=== PATIENT | male | born 1945 | race Caucasian/White ===

== ENCOUNTER → 2023-07-26 | Outpatient (CLI) | payer MEDICARE ==
[~2023-07-26] MED LIST: AMLO10 PO; AMOX500 PO; ATEN50; ATEN50 PO; CITA20 PO; ESCI10; HYDACE5; HYDACE5 PO; HYDCHL25 PO; SPIHYD
[2023-07-26 10:40] LABS: BASOPHILS ABSOLUTE AUTO 0.07 K/mm3 (0.00-0.23); BASOPHILS PERCENT AUTO 1 % (0-2); EOSINOPHILS ABSOLUTE AUTO 0.27 K/mm3 (0.00-0.68); EOSINOPHILS PERCENT AUTO 4 % (0-6); Hematocrit 45.6 % (37.0-53.0); IMMATURE GRAN ABSOLUTE AUTO 0.02 K/mm3 (0.00-0.10); IMMATURE GRAN PERCENT AUTO 0 % (0-1); LYMPHOCYTES PERCENT AUTO 24 % (21-46); MONOCYTES ABSOLUTE AUTO 0.57 K/mm3 (0.16-1.47); MONOCYTES PERCENT AUTO 8 % (4-13); Mean Corpuscular HGB 28.9 pg (26.0-34.0); Mean Corpuscular HGB Conc 35.1 g/dL (31.5-36.5); Mean Corpuscular Volume 83 fL (80-100); NEUTROPHILS ABSOLUTE AUTO 4.29 K/mm3 (1.96-9.15); NEUTROPHILS PERCENT AUTO 63 % (41-73); Platelet Count 308 K/mm3 (150-400); RDW Coefficient Variation 12.9 % (11.7-14.2); Red Blood Cell Count 5.53 M/mm3 (4.30-5.90); White Blood Cell Count 6.82 K/mm3 (4.00-11.30)
[2023-07-26 10:55] LABS: Alanine Aminotransfer (ALT/SGP 29 U/L (12-78); Albumin, Blood 3.8 g/dL (3.4-5.0); Albumin/Globulin Ratio 1.2 (0.8-1.8); Alk Phos 66 U/L (50-136); Anion Gap 8 mmol/L (3-11); Aspartate Aminotrans (AST/SGOT 17 U/L (12-37); Bilirubin, Total 0.5 mg/dL (0.1-1.0); Blood Urea Nitrogen 20 mg/dL (8-24); Bun/Creatinine Ratio 14.5 (12.0-20.0); CHOL/HDL RATIO 4.7; CO2, Blood 28 mmol/L (21-32); Calcium, Blood 9.8 mg/dL (8.5-10.1); Chloride, Blood 105 mmol/L (98-108); Cholesterol 188 mg/dL (50-200); Creatinine, Blood 1.38 mg/dL (0.60-1.20); Globulin, Blood 3.3 g/dL (2.2-4.0); Glomerular Filtration Rate 52 (60-); Glucose, Blood 106 mg/dL (70-99); HDL Cholesterol 40 mg/dL (>39); LDL/HDL RATIO 2.8; Low Density Lipoprotein Chol 112 mg/dL (0-110); Potassium, Blood 3.4 mmol/L (3.5-5.5); Sodium, Blood 138 mmol/L (136-145); Total Protein, Blood 7.1 g/dL (6.4-8.2); Triglycerides 178 mg/dL (30-160); Very Low Density Lipoprot Chol 35 mg/dL (6-32)
== END | disposition home or self-care (01) ==
LOC: LAB 08:47 → LAB SHORT 08:47
PROVIDERS: Family Medicine
DX: I12.9 Hypertensive chronic kidney disease with stage 1 through stage 4 chronic kidney disease, or unspecified chronic kidney disease (principal); N18.31 Chronic kidney disease, stage 3a
CPT/HCPCS: 36415; 80053; 80061; 85025

== ENCOUNTER 2024-03-29 07:02 | Day surgery (SDC) | payer MEDICARE ==
[~2024-03-29] VITALS: Ht 170.2 cm; Wt 81.3 kg
[~2024-03-29 07:02] MED LIST changes: +Balanced Salt Epinephrine Irrigation Solution 500 mL IR SCH; +Lidocaine HCl/Pf 1% 5 ML VIAL XX SCH; +Moxifloxacin HCL 0.5 MG/0.1 ML 0.4MLSYR RIGHTEYE SCH; +PHENYLEPHRINE\\TROPICAMIDE\\TETRACAINE OPHTHALMIC DILATING SOLN RIGHTEYE PRN; +Povidone-Iodine 450 DROP/30 ML Solution ONE; +Povidone-Iodine 450 DROP/30 ML Solution RIGHTEYE SCH; +SILD50TA PO; +Tetracaine HCl/Pf 0.5% Opth Soln 4 ml ONE; +Triamcinolone Inj Susp 40 MG / ML 1ML Vial INJ SCH; +Triamcinolone Inj Susp 40 MG / ML 1ML Vial ONE; +ZOLP10 PO
[2024-03-29] MEDS ORDERED: Diazepam 2 MG Tab ONE (07:50)
--- NOTE | 2024-03-29 08:14 | NUR ---
[facility]14 [facility] PER PATIENT HE HAS NOT TAKEN ANY MEDICATIONS THIS MORNING. 4 MG PO VALIUM GIVEN PER ORDERS FROM DR BRYANT AT 0812 WITH SMALL SIP OF WATER.
[2024-03-29 09:09] VITALS: BP 123/88
== END 2024-03-29 09:26 | disposition home or self-care (01) ==
LOC: ORSCSDS 07:02
PROVIDERS: Ophthalmology
PROC: 08RJ3JZ Replacement of Right Lens with Synthetic Substitute, Percutaneous Approach (ICD-10-PCS; principal; 2024-03-29 09:00)
DX: H25.811 Combined forms of age-related cataract, right eye (principal); I10 Essential (primary) hypertension; Z79.899 Other long term (current) drug therapy; Z87.891 Personal history of nicotine dependence
CPT/HCPCS: A9270; J3301; V2632

== ENCOUNTER 2024-04-04 08:31 | Day surgery (SDC) | payer MEDICARE ==
[~2024-04-04] VITALS: Ht 175.3 cm; Wt 81.4 kg
[~2024-04-04 08:31] MED LIST changes: +Moxifloxacin HCL 0.5 MG/0.1 ML 0.4MLSYR LEFTEYE SCH; -Moxifloxacin HCL 0.5 MG/0.1 ML 0.4MLSYR RIGHTEYE SCH; +PHENYLEPHRINE\\TROPICAMIDE\\TETRACAINE OPHTHALMIC DILATING SOLN LEFTEYE PRN; -PHENYLEPHRINE\\TROPICAMIDE\\TETRACAINE OPHTHALMIC DILATING SOLN RIGHTEYE PRN; +Povidone-Iodine 450 DROP/30 ML Solution LEFTEYE SCH; -Povidone-Iodine 450 DROP/30 ML Solution RIGHTEYE SCH
[2024-04-04] MEDS ORDERED: Diazepam 2 MG Tab ONE (08:53)
--- NOTE | 2024-04-04 09:05 | NUR ---
04/04/24 0905 Rubi Nava 0903: PT REPORTED ANXIETY LEVEL OF 0904: 4 MG VALIUM PO GIVEN PER ORDERS FROM DR PERRIN
--- NOTE | 2024-04-04 10:28 | NUR ---
04/04/24 1028 Fredy Chaney PT NOTED TO BE IN A-FIB IN PRE-OP BASED ON 3-LEAD ECG . 12 LEAD ECG OBTAINED, PER DR. BARRAZA ORDER. DR. BARRAZA REVIEWED ECG AND APPROVED D/C. PT DENIED CP, DIZZINESS, WEAKNESS, SOB, NAUSEA, AND OTHER CARDIAC SYMPTOMS. NONE WERE OBSERVED. PT INSTRUCTED TO FOLLOW UP WITH PCP IMMEDIATELY FOR A-FIB AND SEEK EMERGENCY CARE FOR CARDIAC SYMPTOMS.
[2024-04-04 10:29] VITALS: BP 125/81
== END 2024-04-04 10:25 | disposition home or self-care (01) ==
LOC: ORSCSDS 08:31
PROVIDERS: Ophthalmology
PROC: 08RK3JZ Replacement of Left Lens with Synthetic Substitute, Percutaneous Approach (ICD-10-PCS; principal; 2024-04-04 10:00)
DX: H25.812 Combined forms of age-related cataract, left eye (principal); Z96.1 Presence of intraocular lens; H35.30 Unspecified macular degeneration; Z85.46 Personal history of malignant neoplasm of prostate; I10 Essential (primary) hypertension; I48.91 Unspecified atrial fibrillation; Z79.899 Other long term (current) drug therapy; Z87.891 Personal history of nicotine dependence
CPT/HCPCS: 93005; 93010; A9270; J3301; V2632

== ENCOUNTER 2024-05-22 20:23 | Inpatient (IN) | payer MEDICARE ==
[~2024-05-22] VITALS: Ht 175.3 cm; Wt 77.8 kg
[~2024-05-22 20:23] MED LIST changes: -Balanced Salt Epinephrine Irrigation Solution 500 mL IR SCH; -Lidocaine HCl/Pf 1% 5 ML VIAL XX SCH; -Moxifloxacin HCL 0.5 MG/0.1 ML 0.4MLSYR LEFTEYE SCH; -PHENYLEPHRINE\\TROPICAMIDE\\TETRACAINE OPHTHALMIC DILATING SOLN LEFTEYE PRN; -Povidone-Iodine 450 DROP/30 ML Solution LEFTEYE SCH; -Povidone-Iodine 450 DROP/30 ML Solution ONE; -Tetracaine HCl/Pf 0.5% Opth Soln 4 ml ONE; -Triamcinolone Inj Susp 40 MG / ML 1ML Vial INJ SCH; -Triamcinolone Inj Susp 40 MG / ML 1ML Vial ONE
[2024-05-22 20:52] LABS: BASOPHILS ABSOLUTE AUTO 0.08 K/mm3 (0.00-0.23); BASOPHILS PERCENT AUTO 0 % (0-2); EOSINOPHILS ABSOLUTE AUTO 0.01 K/mm3 (0.00-0.68); EOSINOPHILS PERCENT AUTO 0 % (0-6); Hematocrit 34.6 % (37.0-53.0); Hemoglobin 11.5 g/dL (13.5-17.5); IMMATURE GRAN PERCENT AUTO 2 % (0-1); LYMPHOCYTES ABSOLUTE AUTO 1.84 K/mm3 (0.84-5.20); LYMPHOCYTES PERCENT AUTO 8 % (21-46); MONOCYTES PERCENT AUTO 7 % (4-13); Mean Corpuscular HGB 28.6 pg (26.0-34.0); Mean Corpuscular HGB Conc 33.2 g/dL (31.5-36.5); Mean Corpuscular Volume 86 fL (80-100); Mean Platelet Volume 9.4 fL (9.1-12.4); NEUTROPHILS ABSOLUTE AUTO 18.27 K/mm3 (1.96-9.15); NEUTROPHILS PERCENT AUTO 82 % (41-73); Platelet Count 414 K/mm3 (150-400); RDW Coefficient Variation 14.7 % (11.7-14.2); RDW Standard Deviation 46.4 fL (35.1-46.3); Red Blood Cell Count 4.02 M/mm3 (4.30-5.90)
[2024-05-22 21:11] LABS: Albumin, Blood 3.4 g/dL (3.4-5.0); Albumin/Globulin Ratio 0.9 (0.8-1.8); Bilirubin, Total 1.2 mg/dL (0.1-1.0); Bun/Creatinine Ratio 18.8 (12.0-20.0); Calcium, Blood 9.9 mg/dL (8.5-10.1); Creatinine, Blood 2.24 mg/dL (0.60-1.20); Globulin, Blood 3.7 g/dL (2.2-4.0); Potassium, Blood 3.6 mmol/L (3.5-5.5); Total Protein, Blood 7.1 g/dL (6.4-8.2)
[2024-05-22 21:19] LABS: Prothrombin Time Results 67.8 Sec (9.7-11.5)
[2024-05-22] MEDS ORDERED: Cefepime HCl 1,000 MG in NS 100 ML IV ONE (21:25)
[2024-05-22 21:33] LABS: PCO2 Arterial 35.8 mmHg (35-45); PO2 Arterial 28.1 mmHg (80-100); pH Blood Arterial 7.39 (7.35-7.45)
[2024-05-22 21:35] LABS: International Normalized Ratio 7.35
[2024-05-22] MEDS ORDERED: Vancomycin HCL 1,500 MG in NS 250 ML IV ONE (21:35)
[2024-05-22 22:23] LABS: CORONAVIRUS COVID-19 AG Negative (NEGATIVE); INFLUENZA A AG Negative (NEGATIVE); INFLUENZA B AG Negative (NEGATIVE)
[2024-05-22] MEDS ORDERED: Ondansetron HCl 2 MG / ML 2ML Vial IV PRN (23:20)
[2024-05-23] VITALS (7 sets, daily range): BP systolic 103–116; BP diastolic 65–90
[2024-05-23] MEDS ORDERED: Phytonadione 5 MG Tab PO ONE (00:10)
[2024-05-23] MEDS ORDERED: Potassium Chloride 40 MEQ in NS 250 ML IV ONE (00:50)
[2024-05-23] MEDS ORDERED: NS 250 ML IV PRN (01:10)
[2024-05-23] MEDS ORDERED: Cefepime HCl 1,000 MG in NS 100 ML IV SCH (01:18)
[2024-05-23] MEDS ORDERED: WARF5 PO (01:39)
--- NOTE | 2024-05-23 02:17 | NUR ---
ASSUMPTION OF CARE PT TO UNIT FROM ED @0058. ON HIFLO CANNULA/OXY MASK 15L FOR TRANSPORT, PT PLACED ON BIPAP UPON ARRIVAL TO ROOM DUE TO DESATS <90%. PLACED ON BIPAP 12/30 100% , SPO2 NOW 97%. TOLERATING BIPAP WELL. NO NEW BLEEDING NOTED. VSS. ADMISSION COMPLETED ALONG WITH PT & DAUGHTER. FFP'S COMPLETED IN ER. PT STATES FEELING "MUCH BETTER" CURRENTLY. PT ORIENTED TO ROOM/HOSPITAL POLICY PROCEDURE. BED ALARM ON. BED IN LOW POSITION.
[2024-05-23] MEDS ORDERED: Furosemide 10 MG/ML 4ML Vial IV SCH (03:20)
[2024-05-23 03:44] LABS: Hematocrit 29.7 % (37.0-53.0); Hemoglobin 10.5 g/dL (13.5-17.5); Mean Corpuscular HGB 28.8 pg (26.0-34.0); Mean Corpuscular HGB Conc 35.4 g/dL (31.5-36.5); Mean Corpuscular Volume 82 fL (80-100); Mean Platelet Volume 9.2 fL (9.1-12.4); Platelet Count 334 K/mm3 (150-400); RDW Coefficient Variation 14.5 % (11.7-14.2); RDW Standard Deviation 42.7 fL (35.1-46.3); RETICULOCYTE ABSOLUTE 0.0863 M/mm3 (0.0200-0.1100); RETICULOCYTE COUNT PERCENT 2.37 % (0.50-2.50); Red Blood Cell Count 3.64 M/mm3 (4.30-5.90); White Blood Cell Count 18.26 K/mm3 (4.00-11.30)
[2024-05-23 03:50] LABS: International Normalized Ratio 3.56
[2024-05-23 03:52] LABS: Base Excess Venous 5.4 mmol/L; Bicarbonate Venous 28.7 mmol/L (24.0-30.0); PCO2 Venous 46.1 mmHg (38-42); pH Blood Venous 7.42 (7.34-7.37)
[2024-05-23 04:15] LABS: BAND PERCENT MAN 2 % (0-8); BASOPHILS PERCENT MAN 0 % (0-2); EOSINOPHILS PERCENT MAN 0 % (0-6); LYMPHOCYTES ABSOLUTE MAN 1.82 K/mm3 (0.84-5.20); LYMPHOCYTES PERCENT MAN 10 % (21-46); METAMYELOCYTE ABSOLUTE MAN 0.18 K/mm3 (0.00-0.00); METAMYELOCYTE PERCENT MAN 1 % (0-0); MONOCYTES ABSOLUTE MAN 1.09 K/mm3 (0.16-1.47); MONOCYTES PERCENT MAN 6 % (4-13); MYELOCYTE ABSOLUTE MAN 0.18 K/mm3 (0.00-0.00); MYELOCYTE PERCENT MAN 1 % (0-0); NEUTROPHILS ABSOLUTE MAN 14.97 K/mm3 (1.96-9.15); SEG NEUTROPHILS PERCENT MAN 80 % (41-73); TOTAL CELLS COUNTED 100
[2024-05-23 04:44] LABS: Prothrombin Time Results 34.7 Sec (9.7-11.5)
--- NOTE | 2024-05-23 05:24 | NUR ---
SHIFT SUMMARY SEE ADMISSION NOTE. POST ADMISSION, NO ACUTE CHANGES NOTED. PT HAS NOT COUGHED UP ANY BLOOD PER PT REPORT AND THIS RN'S ASSESMENT. PT REMAINS ON BIPAP 10/5 100%, TOLERATES QUICK BREAKS FOR ORAL SWABS. VSS. IV LASIX ORDERED/ADMINISTERED, BP CURRENTLY TOLERATING. OTHERWISE, PT RESTING. BED ALARM ON. BED IN LOW POSITION.
[2024-05-23 07:01] LABS: International Normalized Ratio 3.34; Prothrombin Time Results 32.7 Sec (9.7-11.5)
[2024-05-23 07:11] LABS: Albumin, Blood 3.6 g/dL (3.4-5.0); Bilirubin, Total 1.3 mg/dL (0.1-1.0); Bun/Creatinine Ratio 25.3 (12.0-20.0); C-REACTIVE PROTEIN, EXT RANGE 9.22 mg/dL (0.000-0.300); Calcium, Blood 9.4 mg/dL (8.5-10.1); Creatinine, Blood 1.62 mg/dL (0.60-1.20); Globulin, Blood 3.5 g/dL (2.2-4.0); Magnesium, Blood 2.5 mg/dL (1.6-2.4); Percent Saturation 13.5 % (20.0-50.0); Potassium, Blood 3.3 mmol/L (3.5-5.5); Total Protein, Blood 7.1 g/dL (6.4-8.2)
--- NOTE | 2024-05-23 09:33 | NUR ---
Pt trialed on n.c. this morning at 0930; His spo2 dropped to 86% on 10 l/min hi flow nasal cannula, without respiratory distress. RR around 20/min. Pt was put back on the bipap, but FiO2 was decreased to 70%, and he is maintaining spo2 95-96%. Daughter Talita is at the bedside. Pt states he is hungry, but understands that he still needs to keep the bipap mask on.
[2024-05-23 11:26] LABS: International Normalized Ratio 2.98
[2024-05-23 12:53] LABS: Prothrombin Time Results 29.4 Sec (9.7-11.5)
--- NOTE | 2024-05-23 13:14 | NUR ---
Dr. Fine here to see the patient. Suggested trying airvo so that the pt can eat and drink. Kimberly in respiratory called and requested Airvo set up. Pt currently on bipap at 70% FiO2.
[2024-05-23 15:41] LABS: Vancomycin, Random 6.9 ug/mL
[2024-05-23] MEDS ORDERED: Vancomycin HCL 1,250 MG in NS 250 ML IV SCH (16:00)
--- NOTE | 2024-05-23 16:48 | NUR ---
Pt has had improved respiratory status over the past 10 hours. This morning he did not tolerate being off of the bipap; this afternoon he is on Airvo and tolerating well with conversation, eating, and using urinal while in bed. Diuresing well. Lung sounds are clear in anterior upper lobes; fine inspiratory crackles noted in posterior lower lobes. Has a very occasional productive cough, with small amount of thin bright red mucous noted once. He remains on bed rest, liquid diet for lunch. Will advance as tolerated. He was instructed that he should still use the bipap any time that he is napping or sleeping for the night.
[2024-05-23] MEDS ORDERED: Citalopram Hydrobromide 20 MG Tab PO SCH (18:00)
--- NOTE | 2024-05-23 19:43 | NUR ---
ASSUMPTION OF CARE ASSUMED PT'S CARE AT 1900,BEDSIDE REPORT COMPLETED.PT AWAKE WATCHING TV.DENIES PAIN,DENIES SOB,DENIES NEEDS.ON AIRVO 76% AND 50L,OXYGEN SATURATION 94%.PLAN OF CARE REVIEWED.CALL LIGHT AND PT'S ITEMS WITHIN REACH,WILL CONTINUE TO MONITOR.
[2024-05-23] MEDS ORDERED: Lactobacil 2-S.Thermo-Bifido 1 1 Cap PO SCH (21:00)
[2024-05-24] VITALS (8 sets, daily range): BP systolic 97–122; BP diastolic 63–84
[2024-05-24 04:14] LABS: BASOPHILS ABSOLUTE AUTO 0.04 K/mm3 (0.00-0.23); BASOPHILS PERCENT AUTO 0 % (0-2); EOSINOPHILS ABSOLUTE AUTO 0.09 K/mm3 (0.00-0.68); EOSINOPHILS PERCENT AUTO 1 % (0-6); Hemoglobin 10.4 g/dL (13.5-17.5); IMMATURE GRAN ABSOLUTE AUTO 0.13 K/mm3 (0.00-0.10); IMMATURE GRAN PERCENT AUTO 1 % (0-1); LYMPHOCYTES ABSOLUTE AUTO 1.12 K/mm3 (0.84-5.20); LYMPHOCYTES PERCENT AUTO 7 % (21-46); MONOCYTES ABSOLUTE AUTO 0.81 K/mm3 (0.16-1.47); MONOCYTES PERCENT AUTO 5 % (4-13); Mean Corpuscular HGB 28.6 pg (26.0-34.0); Mean Corpuscular HGB Conc 34.7 g/dL (31.5-36.5); Mean Corpuscular Volume 82 fL (80-100); Mean Platelet Volume 9.3 fL (9.1-12.4); NEUTROPHILS ABSOLUTE AUTO 13.17 K/mm3 (1.96-9.15); NEUTROPHILS PERCENT AUTO 86 % (41-73); NRBC ABSOLUTE 0.02 K/mm3 (0.00-0.02); NRBC Auto 0.1 /100 WBC (0.0-0.2); Platelet Count 321 K/mm3 (150-400); RDW Coefficient Variation 14.6 % (11.7-14.2); Red Blood Cell Count 3.64 M/mm3 (4.30-5.90); White Blood Cell Count 15.36 K/mm3 (4.00-11.30)
[2024-05-24 04:28] LABS: International Normalized Ratio 1.66; Prothrombin Time Results 17.1 Sec (9.7-11.5)
[2024-05-24 04:38] LABS: Albumin/Globulin Ratio 0.9 (0.8-1.8); Bilirubin, Total 1.8 mg/dL (0.1-1.0); Bun/Creatinine Ratio 32.1 (12.0-20.0); Calcium, Blood 8.8 mg/dL (8.5-10.1); Creatinine, Blood 1.09 mg/dL (0.60-1.20); Globulin, Blood 3.5 g/dL (2.2-4.0); Potassium, Blood 2.7 mmol/L (3.5-5.5); Total Protein, Blood 6.5 g/dL (6.4-8.2)
--- NOTE | 2024-05-24 05:43 | NUR ---
SHIFT SUMMARY PT SLEPT ON/OFF THROUGHOUT THE NIGHT.TOLERATED BIPAP WELL.ASSESSMENT UNCHANGED THROUGHOUT THE SHIFT.PT DENIES PAIN,DENIES NEEDS AT THIS TIME.WILL GIVE REPORT TO DAYSHIFT NURSE FOR CONTINUITY OF CARE.CALL LIGHT AND PT'S ITEMS WITHIN REACH.
--- NOTE | 2024-05-24 07:53 | NUR ---
pt. potassium this am is 2.7, Dr. Scott notified and ordered for kcl 60meq po x1.
[2024-05-24] MEDS ORDERED: Potassium Chloride 20 MEQ TabCR PO ONE ×2 (08:00→18:00)
--- NOTE | 2024-05-24 08:16 | NUR ---
pt. up to chair for breakfast with 1 person assist. patient on airvo 53L/min and 77% fio2. patient desatted to 87 when sitting up and quickly recovered to 92-94% when transfering from bed to chair.
[2024-05-24] MEDS ORDERED: Atenolol 50 MG Tab PO SCH (09:00)
--- NOTE | 2024-05-24 09:04 | NUR ---
pt. tolerating fio2 at 61% and 50lpm via airvo satting 93-94%. patient is up in chair.
--- NOTE | 2024-05-24 10:45 | NUR ---
Dr. Scott at bedside. continue to monitor potassium levels and notify Doctor of low potassium levels. at this time patient to remain off of blood thinners. continue to work to improve breathing and wean off bipap.
--- NOTE | 2024-05-24 11:14 | NUR ---
Pt requested off of bipap. Attempted nasal cannula hi flow at 8-10 l/min but spo2 was only 86-88%. No dyspnea. AirVo placed (77% FiO2) and spo2 is 93% RR 14/min. Daughter at bedside.
--- NOTE | 2024-05-24 11:40 | NUR ---
daughter Talita at bedside; updated on echo and current plan for patient, questions in regards to dme and home health papers on patients bedside table addressed-educated on both as appropriate. patient reports that he does not want to continue to take the coumadin d/t current illiness; patients daughter and patient to discuss with doctor options for anticoagulants for treatment of afib and alternatives to coumadin during doctor/patient rounding.
[2024-05-25] VITALS (7 sets, daily range): BP systolic 95–128; BP diastolic 58–83
--- NOTE | 2024-05-25 01:53 | NUR ---
UPDATE PT HAD A 22 BEAT RUN OF VTACH. PT DENIED CP/PRESSURE, NUMBNESS, SOB, LIGHTHEAD/DIZZY. VSS. PTS POTASSIUM WAS 2.7 DURING DAYSHIFT, POTASSIUM WAS REPLENSHED. LEVEL RECHECKED AROUND 1300 AND WAS 2.9, PER REPORT PT RECEIVED ANOTHER DOSE OF POTASSIUM. LAB SCHEDULED FOR AM. PT MAGNESIUM WAS ALSO 2.5 LAST LABS. PROVIDER NOTIFIED OF THIS. 40 MEQ OF PO K ORDERED ORDERED AND GIVEN. PER PROVIDER WATCH RHYTHM AND IF VTACH SUSTAINS FOR GREATER THAN 30 BEATS CALL. WILL MONITOR PT.
[2024-05-25] MEDS ORDERED: Potassium Chloride 20 MEQ TabCR PO ONE ×2 (02:00→08:00)
[2024-05-25 04:18] LABS: BASOPHILS ABSOLUTE AUTO 0.05 K/mm3 (0.00-0.23); BASOPHILS PERCENT AUTO 0 % (0-2); EOSINOPHILS ABSOLUTE AUTO 0.31 K/mm3 (0.00-0.68); EOSINOPHILS PERCENT AUTO 3 % (0-6); Hematocrit 30.7 % (37.0-53.0); Hemoglobin 10.5 g/dL (13.5-17.5); IMMATURE GRAN ABSOLUTE AUTO 0.14 K/mm3 (0.00-0.10); IMMATURE GRAN PERCENT AUTO 1 % (0-1); LYMPHOCYTES ABSOLUTE AUTO 1.24 K/mm3 (0.84-5.20); LYMPHOCYTES PERCENT AUTO 10 % (21-46); MONOCYTES ABSOLUTE AUTO 0.66 K/mm3 (0.16-1.47); MONOCYTES PERCENT AUTO 5 % (4-13); Mean Corpuscular HGB 28.5 pg (26.0-34.0); Mean Corpuscular HGB Conc 34.2 g/dL (31.5-36.5); Mean Corpuscular Volume 83 fL (80-100); Mean Platelet Volume 9.5 fL (9.1-12.4); NEUTROPHILS ABSOLUTE AUTO 9.88 K/mm3 (1.96-9.15); NEUTROPHILS PERCENT AUTO 81 % (41-73); NRBC ABSOLUTE 0.02 K/mm3 (0.00-0.02); NRBC Auto 0.2 /100 WBC (0.0-0.2); Platelet Count 324 K/mm3 (150-400); RDW Coefficient Variation 14.6 % (11.7-14.2); RDW Standard Deviation 43.6 fL (35.1-46.3); Red Blood Cell Count 3.68 M/mm3 (4.30-5.90); White Blood Cell Count 12.28 K/mm3 (4.00-11.30)
[2024-05-25 04:30] LABS: International Normalized Ratio 1.26; Prothrombin Time Results 13.3 Sec (9.7-11.5)
[2024-05-25 04:43] LABS: Albumin, Blood 2.8 g/dL (3.4-5.0); Albumin/Globulin Ratio 0.8 (0.8-1.8); Bilirubin, Total 1.7 mg/dL (0.1-1.0); Bun/Creatinine Ratio 29.5 (12.0-20.0); Calcium, Blood 8.9 mg/dL (8.5-10.1); Creatinine, Blood 0.98 mg/dL (0.60-1.20); Globulin, Blood 3.5 g/dL (2.2-4.0); Potassium, Blood 3.3 mmol/L (3.5-5.5); Total Protein, Blood 6.3 g/dL (6.4-8.2)
--- NOTE | 2024-05-25 06:03 | NUR ---
SHIFT SUMMARY PT A&O X4, CALM, COOPERATIVE TO CARE. AFIB, HR IN THE 80'S, DENIES CP/PRESSURE, NUMB/TINGLING, SBP STABLE. PT HAD A 22 BEAT RUN OF VTACH, PTS VSS, ASYMPTOMATIC, PROVIDER NOTIFIED. O2 >92% ON BIPAP , PT DESATS WHILE TRANSITIONING FROM AIRVO TO BIPAP, RECOVERS QUICKLY. PT ON BIPAP DURING SLEEP AND AIRVO DURING THE DAY, RA AT BASELINE. PTS BREATING IS EVEN UNLABORED. DENIES SOB AT THIS TIME. PT USING URNIAL IN BED, YELLOW URINE. PTS POTASSIUM PT RESTING IN BED AT THIS TIME WILL MONITOR PT AND REPORT TO ONCOMING NURSE.
--- NOTE | 2024-05-25 07:19 | NUR ---
Bedside shift report from ROBIN Moura. The pt appears to be sleeping comfortably, wearing bipap. Heart rate noted afib, 94-101 bpm. Atenolol was reportedly held yesterday for systolic less than 105, which are the prescribed parameters. The pt had a heart rate of 70-80s two days ago. No overnight issues. PT was given an additional 40 Meq of potassium by the MONIQUE RN for hypokalemia on AM labs.
--- NOTE | 2024-05-25 13:12 | NUR ---
patient falling asleep and desatting on airvo; switched to bipap-desatted to 88 and recovered well on bipap.
[2024-05-25 15:23] LABS: Vancomycin, Trough 9.3 ug/mL (5.0-10.0)
[2024-05-25] MEDS ORDERED: Vancomycin HCL 1,000 MG in NS 250 ML IV SCH (16:00)
--- NOTE | 2024-05-25 17:32 | NUR ---
SHIFT SUMMARY. PATIENT IS A&OX4. PATIENT CALLS APPROPRIATELY AND IS ABLE TO MAKE HIS NEEDS KNOWN. PATIENT TOLERATING AIRVO WELL TODAY AT 45LPM AND FIO2 60%. PATIENT DENIES PAIN AND REPORTS FEELING BETTER TODAY. PATIENT HAS BEEN UP IN CHAIR MAJORITY OF THE DAY. PATIENT WOULD LIKE TO GET UP AND MOVE AROUND; DISCUSSED WITH PATIENT THE NEED TO BE OFF OF AIRVO/BIPAP TO WHICH HE UNDERSTANDS. PATIENT REPORTS THAT HIS EYES ARE DRY-EYE DROPS ORDERED FROM DR. BOGGS. CHAIR IS LOCKED AND PATIENT DENIES ANY NEEDS AT THIS TIME.
[2024-05-25] MEDS ORDERED: Tetrahydrozoline 0.05% Opth Soln 15 ML BOTHEYES PRN (17:50)
--- NOTE | 2024-05-25 21:04 | NUR ---
ASSUMPTION OF CARE RECEIVED REPORT FROM BRADLEY KELLY. PULMONOLGY AT BEDSIDE DURING SHIFT CHANGE. DISCUSSED PLAN FOR ATLEAST A FEW MORE DAYS HERE. PT A&O X4, CALM, COOPERATIVE TO CARE. HR IN THE 80'S-90'S, AFIB. DENIES CP/PRESSURE, NUMB/TINGLING, SBP STABLE. O2>92%, OCASSIONAL DESATS WHILE SWITCHING FROM AIRVO TO BIPAP BUT PT RECOEVERS QUICKLY. HE DENIES SOB AT THSI TIME. PT ON AIRVO AT START OF SHIFT. NIGHT TIME MEDS GIVEN AND PT PLACED BACK ON BIPAP FOR SLEEP. URINAL AT BEDSIDE. PT RESTING IN BED, DENIES ANY QUESTIONS. WILL MONITOR PT.
[2024-05-26] VITALS (7 sets, daily range): BP systolic 87–112; BP diastolic 58–82
[2024-05-26 04:52] LABS: BASOPHILS ABSOLUTE AUTO 0.06 K/mm3 (0.00-0.23); BASOPHILS PERCENT AUTO 1 % (0-2); EOSINOPHILS ABSOLUTE AUTO 0.59 K/mm3 (0.00-0.68); EOSINOPHILS PERCENT AUTO 5 % (0-6); Hematocrit 33.9 % (37.0-53.0); Hemoglobin 11.5 g/dL (13.5-17.5); IMMATURE GRAN ABSOLUTE AUTO 0.18 K/mm3 (0.00-0.10); IMMATURE GRAN PERCENT AUTO 2 % (0-1); LYMPHOCYTES ABSOLUTE AUTO 1.16 K/mm3 (0.84-5.20); LYMPHOCYTES PERCENT AUTO 10 % (21-46); MONOCYTES ABSOLUTE AUTO 0.59 K/mm3 (0.16-1.47); MONOCYTES PERCENT AUTO 5 % (4-13); Mean Corpuscular HGB 28.8 pg (26.0-34.0); Mean Corpuscular HGB Conc 33.9 g/dL (31.5-36.5); Mean Corpuscular Volume 85 fL (80-100); Mean Platelet Volume 9.4 fL (9.1-12.4); NEUTROPHILS ABSOLUTE AUTO 8.59 K/mm3 (1.96-9.15); NEUTROPHILS PERCENT AUTO 77 % (41-73); NRBC ABSOLUTE 0.03 K/mm3 (0.00-0.02); NRBC Auto 0.3 /100 WBC (0.0-0.2); Platelet Count 352 K/mm3 (150-400); RDW Standard Deviation 45.1 fL (35.1-46.3); Red Blood Cell Count 3.99 M/mm3 (4.30-5.90); White Blood Cell Count 11.17 K/mm3 (4.00-11.30)
[2024-05-26 05:12] LABS: Albumin, Blood 2.8 g/dL (3.4-5.0); Anion Gap 8 mmol/L (3-11); Blood Urea Nitrogen 32 mg/dL (8-24); Bun/Creatinine Ratio 29.9 (12.0-20.0); CO2, Blood 31 mmol/L (21-32); Chloride, Blood 100 mmol/L (98-108); Creatinine, Blood 1.07 mg/dL (0.60-1.20); Glomerular Filtration Rate 70 (60-); Glucose, Blood 95 mg/dL (70-99); Phosphorus, Blood 2.1 mg/dL (2.5-4.9); Potassium, Blood 3.4 mmol/L (3.5-5.5); Sodium, Blood 136 mmol/L (136-145)
--- NOTE | 2024-05-26 05:36 | NUR ---
SHIFT SUMMARY PT A&O X4, CALM, COOPERATIVE TO CARE. AFIB, 80'S-90'S, DENIES CP/PRESSURE, NUMB/TINGLING, SBP STABLE. PT O2 >92% ON BIPAP. PT ON AIRVO DURING THE DAY AND BIPAP WHILE SLEEPING. PT TOLERATING BIPAP AND HAS BEEN ON IT T/O SHIFT. PT USING URINAL AT BEDSIDE. PT RESTING IN BED AT THSI TME, HE DENIES QUESTIONS OR CONCERNS. NO ACUTE CHANGES T/O SHIFT. WILL MONITOR PT AND REPORT TO ONCOMING NURSE.
[2024-05-26] MEDS ORDERED: Potassium Chloride 20 MEQ TabCR PO ONE (09:35)
[2024-05-26] MEDS ORDERED: Potassium Phos/Sodium Phos 250 MG PACK PO ONE (09:35)
[2024-05-26] MEDS ORDERED: Azithromycin 500 MG in NS 250 ML IV SCH (10:38)
[2024-05-26] MEDS ORDERED: CefTRIAXone Sodium 1,000 MG in NS 100 ML IV SCH (10:38)
[2024-05-26] MEDS ORDERED: Acetaminophen 325 MG TABLET PO PRN (15:00)
--- NOTE | 2024-05-26 17:44 | NUR ---
PT PLEASNT TODAY. PAIN FOR LOW BACK. ORDERS FOR TYLENOL MADE AND GIVEN. CRACKLES LOW LEFT LUNG FOR ME. PT MOSTLY ON AIRVEO. 45 L WITH 60% FIO2. FAMILY IN TO VISIT TODAY. DESATS QUICKLY ON R.A WHEN SWITCH BIPAP TO AIRVO. NO FURTHER CONCERNS NOTED. BED IN LOW POSITION, CALL LITE IN REACH, CALLS APROP
[2024-05-27 00:09] VITALS: BP 99/59
[2024-05-27 04:00] LABS: BASOPHILS ABSOLUTE AUTO 0.09 K/mm3 (0.00-0.23); BASOPHILS PERCENT AUTO 1 % (0-2); EOSINOPHILS PERCENT AUTO 5 % (0-6); Hematocrit 34.8 % (37.0-53.0); Hemoglobin 11.4 g/dL (13.5-17.5); IMMATURE GRAN ABSOLUTE AUTO 0.28 K/mm3 (0.00-0.10); IMMATURE GRAN PERCENT AUTO 2 % (0-1); LYMPHOCYTES ABSOLUTE AUTO 1.09 K/mm3 (0.84-5.20); LYMPHOCYTES PERCENT AUTO 8 % (21-46); MONOCYTES ABSOLUTE AUTO 0.69 K/mm3 (0.16-1.47); MONOCYTES PERCENT AUTO 5 % (4-13); Mean Corpuscular HGB 27.9 pg (26.0-34.0); Mean Corpuscular HGB Conc 32.8 g/dL (31.5-36.5); Mean Corpuscular Volume 85 fL (80-100); Mean Platelet Volume 9.1 fL (9.1-12.4); NEUTROPHILS ABSOLUTE AUTO 10.91 K/mm3 (1.96-9.15); NEUTROPHILS PERCENT AUTO 79 % (41-73); NRBC ABSOLUTE 0.02 K/mm3 (0.00-0.02); NRBC Auto 0.1 /100 WBC (0.0-0.2); Platelet Count 357 K/mm3 (150-400); RDW Coefficient Variation 15.1 % (11.7-14.2); RDW Standard Deviation 44.9 fL (35.1-46.3); Red Blood Cell Count 4.08 M/mm3 (4.30-5.90); White Blood Cell Count 13.76 K/mm3 (4.00-11.30)
[2024-05-27 04:24] LABS: Albumin, Blood 2.8 g/dL (3.4-5.0); Anion Gap 10 mmol/L (3-11); Blood Urea Nitrogen 34 mg/dL (8-24); Bun/Creatinine Ratio 33.7 (12.0-20.0); CO2, Blood 30 mmol/L (21-32); Calcium, Blood 8.8 mg/dL (8.5-10.1); Chloride, Blood 100 mmol/L (98-108); Creatinine, Blood 1.01 mg/dL (0.60-1.20); Glomerular Filtration Rate 75 (60-); Glucose, Blood 99 mg/dL (70-99); Phosphorus, Blood 2.6 mg/dL (2.5-4.9); Potassium, Blood 3.3 mmol/L (3.5-5.5); Sodium, Blood 137 mmol/L (136-145)
[2024-05-27 04:43] VITALS: BP 124/82
--- NOTE | 2024-05-27 05:21 | NUR ---
SHIFT SUMMARY PT A&O X4, CALM, COOPERATIVE TO CARE. HR IN THE 80'S AFIB, DENIES CP/PRESSURE, NUMB/TINGLING, SBP SOFT IN THE 90'S, MAP >65, LAST SBP IN THE 120'S. O2 >92% ON BIPAP 8/5 50% FIO2. PT ALTERNATING BETWEEN BIPAP FOR SLEEP AND AIRVO DURING THE DAY. HE DENIES SOB. HE IS ABLE TO TOLERATE THE SWITCH FROM BIPAP TO AIRVO BETTER THAN LAST NIGHT. PT USES URINAL AT BEDSIDE AND SBA TO BSC FOR BM. PT HAD A BM THIS SHIFT. HE IS DIURESING WELL. HE DENIES ANY QUESTIONS OR CONCERNS AT THSI TIME. WILL MONITOR PT AND REPORT TO ONCOMING RN.
[2024-05-27 07:32] VITALS: BP 100/77
[2024-05-27] MEDS ORDERED: Potassium Chloride 20 MEQ TabCR PO SCH (10:00)
[2024-05-27 11:27] VITALS: BP 105/78
[2024-05-27 15:28] VITALS: BP 106/85
--- NOTE | 2024-05-27 18:24 | NUR ---
SHIFT SUMMARY PT A&OX4. SP02>90% oN AIRVO ORIGINALLY AT START OF SHIFT. PT TITRATED TO 7L HUMIDIFED NC CURRENTLY. CPAP NOC W/ 6L BLEED IN. TELEMETRY SHOWS AFIB, HR 80 S. DENIES PAIN. C/O OF ITCHING ON BACK, RED. PT THINKS REACTION TO LINENS. BED BATH GIVEN. LINENS CHANGED. PT USED URINAL TO VOID. UP TO BSC TO HAVE BM. CALL LIGHT IN REACH.
[2024-05-27 20:15] VITALS: BP 114/72
[2024-05-28 00:55] VITALS: BP 106/71
[2024-05-28 03:51] VITALS: BP 105/71
[2024-05-28 04:55] LABS: BASOPHILS ABSOLUTE AUTO 0.05 K/mm3 (0.00-0.23); BASOPHILS PERCENT AUTO 0 % (0-2); EOSINOPHILS ABSOLUTE AUTO 0.55 K/mm3 (0.00-0.68); EOSINOPHILS PERCENT AUTO 4 % (0-6); Hematocrit 37.3 % (37.0-53.0); Hemoglobin 12.2 g/dL (13.5-17.5); IMMATURE GRAN ABSOLUTE AUTO 0.35 K/mm3 (0.00-0.10); IMMATURE GRAN PERCENT AUTO 3 % (0-1); LYMPHOCYTES ABSOLUTE AUTO 1.05 K/mm3 (0.84-5.20); LYMPHOCYTES PERCENT AUTO 8 % (21-46); MONOCYTES ABSOLUTE AUTO 0.67 K/mm3 (0.16-1.47); MONOCYTES PERCENT AUTO 5 % (4-13); Mean Corpuscular HGB 28.2 pg (26.0-34.0); Mean Corpuscular HGB Conc 32.7 g/dL (31.5-36.5); Mean Corpuscular Volume 86 fL (80-100); Mean Platelet Volume 9.3 fL (9.1-12.4); NEUTROPHILS ABSOLUTE AUTO 9.86 K/mm3 (1.96-9.15); NEUTROPHILS PERCENT AUTO 79 % (41-73); Platelet Count 421 K/mm3 (150-400); RDW Coefficient Variation 15.4 % (11.7-14.2); RDW Standard Deviation 46.8 fL (35.1-46.3); Red Blood Cell Count 4.32 M/mm3 (4.30-5.90); White Blood Cell Count 12.53 K/mm3 (4.00-11.30)
[2024-05-28 05:31] LABS: Bun/Creatinine Ratio 26.3 (12.0-20.0); Calcium, Blood 9.1 mg/dL (8.5-10.1); Creatinine, Blood 1.14 mg/dL (0.60-1.20); Potassium, Blood 3.6 mmol/L (3.5-5.5)
[2024-05-28 08:04] VITALS: BP 119/88
--- NOTE | 2024-05-28 11:06 | NUR ---
AM NOTE: RECEIVED BEDSIDE SHIFT REPORT FROM ROBIN SCHULTE. PT HAS BEEN A&Ox4, ANSWERING QUESTIONS APPROPRIATELY. PT DENIES SOB, O2 SATS >93%, O2 FLOW TITRATED TO 4 L/MIN VIA HI FLOW NC. TELEMETRY DC'd PER ORDERS, PT DENIES CP. PT UP TO RECLINER FOR BKFST, CURRENTLY RESTING IN BED WITH LIGHTS LOW AND CALL LIGHT IN REACH.
[2024-05-28 15:49] VITALS: BP 123/60
--- NOTE | 2024-05-28 18:36 | NUR ---
SHIFT SUMMARY: NO ACUTE CHANGES SINCE AM NOTE. PT HAS BEEN A&Ox4, COOPERATIVE W/CARE, USES CALL LIGHT APPROPRIATELY. O2 SATS MAINTAINED >93% ON 3 OR 4 L/MIN, PT TO HAVE SLEEP OXIMETRY STUDY W/ O2 VIA NC SET AT RATE OF CURRENT NEEDS WHILE AWAKE, PER DR MCKEON. PT SHOWERS INDEPENDENTLY TODAY, JUST SBA FOR AMBULATION TO MANAGE CORDS/LINES. PT WORKS W/PHYSICAL THERAPY TODAY, AMBULATED TO [place] AND BACK. PT CURRENTLY RESTING IN BED W/CALL LIGHT IN REACH.
[2024-05-28] MEDS ORDERED: HyDROXyzine HCl 25 MG Tab PO PRN (21:30)
[2024-05-28] MEDS ORDERED: Hydrocortisone 1% Ointment 30 GM Tube TOP ONE (21:30)
[2024-05-28 21:45] VITALS: BP 106/78
[2024-05-29 05:05] LABS: BASOPHILS ABSOLUTE AUTO 0.06 K/mm3 (0.00-0.23); BASOPHILS PERCENT AUTO 1 % (0-2); EOSINOPHILS ABSOLUTE AUTO 0.58 K/mm3 (0.00-0.68); EOSINOPHILS PERCENT AUTO 5 % (0-6); Hematocrit 35.8 % (37.0-53.0); Hemoglobin 11.9 g/dL (13.5-17.5); IMMATURE GRAN ABSOLUTE AUTO 0.36 K/mm3 (0.00-0.10); IMMATURE GRAN PERCENT AUTO 3 % (0-1); LYMPHOCYTES PERCENT AUTO 10 % (21-46); MONOCYTES ABSOLUTE AUTO 0.75 K/mm3 (0.16-1.47); MONOCYTES PERCENT AUTO 6 % (4-13); Mean Corpuscular HGB 28.5 pg (26.0-34.0); Mean Corpuscular HGB Conc 33.2 g/dL (31.5-36.5); Mean Corpuscular Volume 86 fL (80-100); Mean Platelet Volume 9.5 fL (9.1-12.4); NEUTROPHILS PERCENT AUTO 76 % (41-73); Platelet Count 418 K/mm3 (150-400); RDW Coefficient Variation 15.6 % (11.7-14.2); Red Blood Cell Count 4.18 M/mm3 (4.30-5.90); White Blood Cell Count 12.75 K/mm3 (4.00-11.30)
[2024-05-29 05:17] LABS: International Normalized Ratio 1.09; Prothrombin Time Results 11.6 Sec (9.7-11.5)
[2024-05-29 05:44] LABS: Albumin, Blood 2.9 g/dL (3.4-5.0); Albumin/Globulin Ratio 0.9 (0.8-1.8); Bilirubin, Total 1.7 mg/dL (0.1-1.0); Bun/Creatinine Ratio 25.9 (12.0-20.0); Creatinine, Blood 1.16 mg/dL (0.60-1.20); Globulin, Blood 3.4 g/dL (2.2-4.0); Potassium, Blood 3.4 mmol/L (3.5-5.5); Total Protein, Blood 6.3 g/dL (6.4-8.2)
[2024-05-29 06:00] VITALS: BP 117/84
--- NOTE | 2024-05-29 06:49 | NUR ---
NOC SHIFT SUMMARY PT ORIENTED X4, VSS. MED/SURG NO TELE. COMPLETED OVERNIGHT OX PER RT. PLEASANT AND COOPERATIVE. NO ACUTE CHANGES.
[2024-05-29 07:31] VITALS: BP 110/76
[2024-05-29] MEDS ORDERED: Potassium Chloride 20 MEQ TabCR PO ONE (08:00)
[2024-05-29 11:34] VITALS: BP 103/58
[2024-05-29] MEDS ORDERED: CEFP200 PO (14:41)
[2024-05-29] MEDS ORDERED: PROBIOTIC1 EA13 PO (14:41)
--- NOTE | 2024-05-29 15:59 | NUR ---
DISCHARGE: PT HAS BEEN CLEARED FOR DISCHARGE HOME. HOME O2 EVAL COMPLETED BY RESP THERAPISTABRAN TO/FROM BEDSIDE TO DELIVER TRANSPORTABLE O2, EDUCATION PROVIDED. ALL IV ACCESS DC'd WNL. PT ASSISTED MINIMALLY W/DRESSING SELF. DC PAPERWORK AND INSTRUCTIONS PROVIDED, PT AND DAUGHTER V/U, ALL QUESTIONS HAVE BEEN ANSWERED. PT ESCORTED FROM UNIT VIA W/C W/OUT INCIDENT.
== END 2024-05-29 16:39 | disposition home health service (06) | DRG 871 ==
LOC: ER 20:23 → PCU 23:16 → ERHOLD 23:16 → PCU 05-23 00:57
PROVIDERS: Family Medicine; Internal Medicine; Student in an Organized Health Care Education/Training Program; ADMIT Internal Medicine
PROC: 5A09457 Assistance with Respiratory Ventilation, 24-96 Consecutive Hours, Continuous Positive Airway Pressure (ICD-10-PCS; principal; 2024-05-22)
PROC: 5A0945A Assistance with Respiratory Ventilation, 24-96 Consecutive Hours, High Flow/Velocity Cannula (ICD-10-PCS; 2024-05-24)
DX: A41.9 Sepsis, unspecified organism (principal); J18.9 Pneumonia, unspecified organism; J96.01 Acute respiratory failure with hypoxia; N17.9 Acute kidney failure, unspecified; E87.20 Acidosis, unspecified; R04.2 Hemoptysis; I13.0 Hypertensive heart and chronic kidney disease with heart failure and stage 1 through stage 4 chronic kidney disease, or unspecified chronic kidney disease; I50.30 Unspecified diastolic (congestive) heart failure; R65.20 Severe sepsis without septic shock; N18.30 Chronic kidney disease, stage 3 unspecified; D63.1 Anemia in chronic kidney disease; I08.2 Rheumatic disorders of both aortic and tricuspid valves; F32.A Depression, unspecified; I50.9 Heart failure, unspecified; T45.515A Adverse effect of anticoagulants, initial encounter; E87.6 Hypokalemia; L29.89 Other pruritus; I48.91 Unspecified atrial fibrillation; Z98.41 Cataract extraction status, right eye; Z79.899 Other long term (current) drug therapy; Z85.46 Personal history of malignant neoplasm of prostate; Z98.890 Other specified postprocedural states; Z79.01 Long term (current) use of anticoagulants; X58.XXXA Exposure to other specified factors, initial encounter
CPT/HCPCS: 36415; 36600; 71045; 71260; 80048; 80053; 80069; 80202; 82728; 82803; 83540; 83550; 83605; 83735; 83880; 84132; 84145; 85025; 85045; 85610; 85730; 86140; 86850; 86900; 86901; 87040; 87428-QW; 93005; 93010; 93306; 94660; 94760; 94761; 94762; 96374-59; 97116; 97162; 99285-25; A9270; J0456; J0692; J0696; J1940; J3370; J3480; J7050; P9059; Q9967

== ENCOUNTER 2024-10-22 12:56 | Inpatient (IN) | payer MEDICARE ==
[~2024-10-22] VITALS: Ht 175.3 cm; Wt 76.4 kg
[~2024-10-22 12:56] MED LIST changes: +CEFP200 PO; +PROBIOTIC1 EA13 PO; +WARF5 PO
[2024-10-22 13:45] LABS: BASOPHILS ABSOLUTE AUTO 0.05 K/mm3 (0.00-0.23); BASOPHILS PERCENT AUTO 0 % (0-2); EOSINOPHILS ABSOLUTE AUTO 0.07 K/mm3 (0.00-0.68); EOSINOPHILS PERCENT AUTO 1 % (0-6); Hematocrit 45.6 % (37.0-53.0); Hemoglobin 15.2 g/dL (13.5-17.5); IMMATURE GRAN ABSOLUTE AUTO 0.05 K/mm3 (0.00-0.10); IMMATURE GRAN PERCENT AUTO 0 % (0-1); LYMPHOCYTES ABSOLUTE AUTO 0.87 K/mm3 (0.84-5.20); LYMPHOCYTES PERCENT AUTO 6 % (21-46); MONOCYTES ABSOLUTE AUTO 1.01 K/mm3 (0.16-1.47); MONOCYTES PERCENT AUTO 7 % (4-13); Mean Corpuscular HGB Conc 33.3 g/dL (31.5-36.5); Mean Corpuscular Volume 80 fL (80-100); NEUTROPHILS ABSOLUTE AUTO 12.56 K/mm3 (1.96-9.15); NEUTROPHILS PERCENT AUTO 86 % (41-73); NRBC ABSOLUTE 0.00 K/mm3 (0.00-0.02); NRBC Auto 0.0 /100 WBC (0.0-0.2); Platelet Count 337 K/mm3 (150-400); RDW Coefficient Variation 17.7 % (11.7-14.2); RDW Standard Deviation 48.6 fL (35.1-46.3)
[2024-10-22 13:52] LABS: Alanine Aminotransfer (ALT/SGP 21.0 U/L (12-78); Albumin, Blood 3.3 g/dL (3.4-5.0); Albumin/Globulin Ratio 0.8 (0.8-1.8); Anion Gap 10.0 mmol/L (3-11); Aspartate Aminotrans (AST/SGOT 13.0 U/L (12-37); Bilirubin, Total 0.9 mg/dL (0.1-1.0); Blood Urea Nitrogen 15.0 mg/dL (8-24); CO2, Blood 25.0 mmol/L (21-32); Calcium, Blood 9.3 mg/dL (8.5-10.1); Chloride, Blood 105.0 mmol/L (98-108); Creatinine, Blood 1.09 mg/dL (0.60-1.20); Globulin, Blood 4.1 g/dL (2.2-4.0); Glucose, Blood 147.0 mg/dL (70-99); Potassium, Blood 3.5 mmol/L (3.5-5.5); Sodium, Blood 136.0 mmol/L (136-145); Total Protein, Blood 7.4 g/dL (6.4-8.2)
[2024-10-22] MEDS ORDERED: Dexamethasone Sod Phos 10 MG/ML 1ML VIAL PO ONE (16:50)
[2024-10-22] MEDS ORDERED: OxyCODONE 5 mg/Acetamin 325 mg TABLET PO ONE (16:50)
[2024-10-22] MEDS ORDERED: Trimethoprim/Sulfamethoxazole DS Tab PO ONE (16:50)
[2024-10-22] MEDS ORDERED: Clindamycin 900mg in D5W 50ML 50 ML IV ONE (18:00)
[2024-10-22] MEDS ORDERED: Vancomycin (Pharmacy Consult) IV SCH (19:05)
[2024-10-22] MEDS ORDERED: Ondansetron HCl 2 MG / ML 2ML Vial IV PRN (19:10)
[2024-10-22] MEDS ORDERED: CefTRIAXone Sodium 2,000 MG in NS 100 ML IV SCH (21:00)
[2024-10-22] MEDS ORDERED: Lactobacil 2-S.Thermo-Bifido 1 1 Cap PO SCH (21:00)
[2024-10-22] MEDS ORDERED: MICROZIDE12.5 MG PO (23:00)
[2024-10-22] MEDS ORDERED: Aspir 8181 MG PO (23:13)
[2024-10-22 23:26] VITALS: BP 145/94
--- NOTE | 2024-10-23 03:03 | NUR ---
SHIFT SUMMARY PATIENT APPEARS TO BE SLEEPING COMFORTABLY AT THIS TIME. ADMITTED WITH A SWOLLEN LEFT HAND AND IT REMAINS SWOLLEN. NPO SINCE MIDNIGHT ORDERED BY\ . PATIENT IS ORIENTED X4. HE HAS HIS CALL LIGHT WITHIN REACH. SAFETY PRECAUTIONS ARE BEING MAINTAINED.
[2024-10-23 04:07] VITALS: BP 122/89
[2024-10-23 06:04] LABS: BASOPHILS ABSOLUTE AUTO 0.02 K/mm3 (0.00-0.23); BASOPHILS PERCENT AUTO 0 % (0-2); EOSINOPHILS ABSOLUTE AUTO 0.01 K/mm3 (0.00-0.68); EOSINOPHILS PERCENT AUTO 0 % (0-6); Hematocrit 42.1 % (37.0-53.0); Hemoglobin 14.2 g/dL (13.5-17.5); IMMATURE GRAN ABSOLUTE AUTO 0.06 K/mm3 (0.00-0.10); IMMATURE GRAN PERCENT AUTO 1 % (0-1); LYMPHOCYTES ABSOLUTE AUTO 0.76 K/mm3 (0.84-5.20); LYMPHOCYTES PERCENT AUTO 8 % (21-46); MONOCYTES ABSOLUTE AUTO 0.60 K/mm3 (0.16-1.47); MONOCYTES PERCENT AUTO 6 % (4-13); Mean Corpuscular HGB Conc 33.7 g/dL (31.5-36.5); Mean Corpuscular Volume 79 fL (80-100); NEUTROPHILS ABSOLUTE AUTO 8.11 K/mm3 (1.96-9.15); NEUTROPHILS PERCENT AUTO 85 % (41-73); NRBC ABSOLUTE 0.00 K/mm3 (0.00-0.02); NRBC Auto 0.0 /100 WBC (0.0-0.2); Platelet Count 331 K/mm3 (150-400); RDW Coefficient Variation 17.2 % (11.7-14.2); RDW Standard Deviation 48.9 fL (35.1-46.3)
[2024-10-23 06:50] LABS: Anion Gap 7.0 mmol/L (3-11); Blood Urea Nitrogen 20.0 mg/dL (8-24); CO2, Blood 27.0 mmol/L (21-32); Calcium, Blood 9.5 mg/dL (8.5-10.1); Chloride, Blood 106.0 mmol/L (98-108); Creatinine, Blood 1.08 mg/dL (0.60-1.20); Glucose, Blood 124.0 mg/dL (70-99); Potassium, Blood 3.9 mmol/L (3.5-5.5); Sodium, Blood 136.0 mmol/L (136-145)
[2024-10-23] MEDS ORDERED: CELEXA40 M1 PO (07:05)
[2024-10-23 07:34] VITALS: BP 124/94
[2024-10-23] MEDS ORDERED: Enoxaparin 40 MG/0.4 ML SYR SC SCH (09:00)
[2024-10-23] MEDS ORDERED: OxyCODONE 5 mg/Acetamin 325 mg TABLET PO PRN (10:05)
[2024-10-23 11:31] VITALS: BP 142/91
[2024-10-23 16:41] VITALS: BP 122/78
--- NOTE | 2024-10-23 17:45 | NUR ---
SHIFT SUMMARY PT AOX4, COOPERATIVE, ABLE TO MAKE NEEDS KNOWN. PT IS IND IN ROOM. TOLERATING MEDICATIONS. ANEESHENLTY ON REGULAR DIET, WAS NPO FOR BREAKFAST DUE TO POSSIBLE PROCEDURE. INSTRUCTED THIS RN THAT "PT CAN EAT". AWAITING TO SEE IF ANTIBIOTICS WILL TREAT INFECTION APPROPRIATELY OR IF FURTHER INTERVENTION IS NEEDED. ON ROOM AIR, RUNNING TELE. BED IN LOWEST POSITION, CALL LIGHT WITHIN REACH.
[2024-10-23 20:30] VITALS: BP 133/89
[2024-10-23 23:13] VITALS: BP 125/98
[2024-10-24 03:05] VITALS: BP 117/71
--- NOTE | 2024-10-24 06:27 | NUR ---
PATIENT ALERT AND ORIENTED X4 DURING SHIFT. UP WITH SBA. USES URINAL. PATIENT ON ROOM AIR. PATIENT RECEIVED IV ANTIBIOTICS. USES CALL LIGHT APPROPRIATELY. BED IN LOW POSITION WITH WHEELS LOCKED. CALL LIGHT WITHIN REACH
[2024-10-24 07:23] LABS: BASOPHILS ABSOLUTE AUTO 0.09 K/mm3 (0.00-0.23); BASOPHILS PERCENT AUTO 1 % (0-2); EOSINOPHILS ABSOLUTE AUTO 0.18 K/mm3 (0.00-0.68); EOSINOPHILS PERCENT AUTO 2 % (0-6); Hematocrit 39.9 % (37.0-53.0); Hemoglobin 13.3 g/dL (13.5-17.5); IMMATURE GRAN ABSOLUTE AUTO 0.05 K/mm3 (0.00-0.10); IMMATURE GRAN PERCENT AUTO 1 % (0-1); LYMPHOCYTES ABSOLUTE AUTO 1.63 K/mm3 (0.84-5.20); LYMPHOCYTES PERCENT AUTO 15 % (21-46); MONOCYTES ABSOLUTE AUTO 0.67 K/mm3 (0.16-1.47); MONOCYTES PERCENT AUTO 6 % (4-13); Mean Corpuscular HGB Conc 33.3 g/dL (31.5-36.5); Mean Corpuscular Volume 80 fL (80-100); NEUTROPHILS ABSOLUTE AUTO 8.39 K/mm3 (1.96-9.15); NEUTROPHILS PERCENT AUTO 76 % (41-73); NRBC ABSOLUTE 0.00 K/mm3 (0.00-0.02); NRBC Auto 0.0 /100 WBC (0.0-0.2); Platelet Count 306 K/mm3 (150-400); RDW Coefficient Variation 17.5 % (11.7-14.2); RDW Standard Deviation 50.8 fL (35.1-46.3)
[2024-10-24 07:44] LABS: Vancomycin, Trough 15.0 ug/mL (5.0-10.0)
[2024-10-24 07:48] LABS: Anion Gap 6.0 mmol/L (3-11); Blood Urea Nitrogen 22.0 mg/dL (8-24); CO2, Blood 26.0 mmol/L (21-32); Calcium, Blood 8.9 mg/dL (8.5-10.1); Chloride, Blood 110.0 mmol/L (98-108); Creatinine, Blood 1.14 mg/dL (0.60-1.20); Glucose, Blood 83.0 mg/dL (70-99); Potassium, Blood 3.8 mmol/L (3.5-5.5); Sodium, Blood 138.0 mmol/L (136-145)
[2024-10-24 07:56] VITALS: BP 160/89
[2024-10-24] MEDS ORDERED: NS 250 ML IV PRN (09:00)
[2024-10-24 11:31] VITALS: BP 151/98
[2024-10-24] MEDS ORDERED: Colchicine 0.6 MG TAB PO ONE (13:00)
[2024-10-24] MEDS ORDERED: VISBIOME 112.51 EACH PO (13:15)
[2024-10-24 14:19] VITALS: BP 121/75
[2024-10-24] MEDS ORDERED: Colchicine 0.6 MG TAB PO SCH (16:00)
--- NOTE | 2024-10-24 17:23 | NUR ---
CALLED DR. FRENCH AND DISCUSSED PTS HEART RATE THROUGH THE DAY. COMMUNITY HEALTH EDUCATOR REPORTS OCC DIPS TO THE 40'S SINCE DURING THE NIGHT. NOW AVERAGING IN THE 50'S IN AFIB WITH THE LOWEST RATE AT 38. ATENOLOL DCD PER .
--- NOTE | 2024-10-24 20:05 | NUR ---
SHIFT SUMMARY- PT STARTED ON COLCHINE TODAY. THE AFFECTED ARM WAS PLACED ON THREE PILLOWS. THE AFFECTED LIMB HAS GREATLY IMPROVED IN THE LAST 4 HOURS. THE SWELLING IS REDUCED GREATLY WELL THE HEAT AND REDNESS. THE PT STATES THE PAIN HAS IMPROVED A LOT WELL. PT IN BNED AT THE TIME OF BEDSIDE REPORT. IV ABX INFUSED AND SL AT THIS TIME. NO S&S OF DISTRESS NOTED.
[2024-10-24 21:25] VITALS: BP 161/104
[2024-10-25 00:30] VITALS: BP 153/104
[2024-10-25 04:57] VITALS: BP 148/100
[2024-10-25 05:46] LABS: BASOPHILS ABSOLUTE AUTO 0.07 K/mm3 (0.00-0.23); BASOPHILS PERCENT AUTO 1 % (0-2); EOSINOPHILS ABSOLUTE AUTO 0.41 K/mm3 (0.00-0.68); EOSINOPHILS PERCENT AUTO 4 % (0-6); Hematocrit 41.1 % (37.0-53.0); Hemoglobin 13.6 g/dL (13.5-17.5); IMMATURE GRAN ABSOLUTE AUTO 0.04 K/mm3 (0.00-0.10); IMMATURE GRAN PERCENT AUTO 0 % (0-1); LYMPHOCYTES ABSOLUTE AUTO 1.15 K/mm3 (0.84-5.20); LYMPHOCYTES PERCENT AUTO 12 % (21-46); MONOCYTES ABSOLUTE AUTO 0.74 K/mm3 (0.16-1.47); MONOCYTES PERCENT AUTO 7 % (4-13); Mean Corpuscular HGB Conc 33.1 g/dL (31.5-36.5); Mean Corpuscular Volume 80 fL (80-100); NEUTROPHILS ABSOLUTE AUTO 7.60 K/mm3 (1.96-9.15); NEUTROPHILS PERCENT AUTO 76 % (41-73); NRBC ABSOLUTE 0.00 K/mm3 (0.00-0.02); NRBC Auto 0.0 /100 WBC (0.0-0.2); Platelet Count 364 K/mm3 (150-400); RDW Coefficient Variation 17.5 % (11.7-14.2); RDW Standard Deviation 50.0 fL (35.1-46.3)
--- NOTE | 2024-10-25 05:47 | NUR ---
OFFICE EQUIPMENT TECHNICIAN SUMMARY PT A&OX4, VSS, EXCEPT ELEVATED BP. ATENOLOL DC'D DURING AM SHIFT D/T CONCERNS FOR LOW HR. PT HAS BEEN ASLEEP FOR MOST OF THE SHIFT. CHEST RISE AND RESPIRATIONS NOTED. PT UP AD MORRIS, VOICES NEEDS WELL W/ CALL LIGHT. AFFECTED ARM ELEVATED W/ PILLOWS TO REDUCE SWELLING. PT CONTINUES TO VOICE IMPROVEMENTS IN CONDITION. PT REMAINS ON TELE. A FIB AT 73. PT HAS BEEN RECEPTIVE TO EDUCATION PROVIDED. BED RAILS UP X 2, BED IN LOWEST POSITION, BED WHEELS LOCKED, PERSONAL BELONGINGS AND CALL LIGHT WITHIN REACH FOR SAFETY.
[2024-10-25 06:03] LABS: Anion Gap 7.0 mmol/L (3-11); Blood Urea Nitrogen 23.0 mg/dL (8-24); CO2, Blood 27.0 mmol/L (21-32); Calcium, Blood 8.9 mg/dL (8.5-10.1); Chloride, Blood 106.0 mmol/L (98-108); Creatinine, Blood 1.27 mg/dL (0.60-1.20); Glucose, Blood 93.0 mg/dL (70-99); Potassium, Blood 3.8 mmol/L (3.5-5.5); Sodium, Blood 136.0 mmol/L (136-145)
[2024-10-25 07:23] VITALS: BP 138/102
[2024-10-25 16:01] VITALS: BP 164/114
--- NOTE | 2024-10-25 19:14 | NUR ---
SHIFT SUMMARY PT IS A/OX4. INDEPENDENT IN THE ROOM. PT STARTED ON IV STERIODS PER MAY. THIS AFTERNOON SWELLING TO LEFT HAND NOTED TO BE DECREASED WHEN COMPARED TO AT THE START OF THIS SHIFT. ON TELE RUNNING AFIB IN THE 'S. PT IS PLEASANT AND COOPERATIVE WITH CARE.
[2024-10-25 20:05] VITALS: BP 147/104
[2024-10-26 00:31] VITALS: BP 157/102
[2024-10-26 04:50] VITALS: BP 162/112
[2024-10-26 06:15] LABS: BASOPHILS ABSOLUTE AUTO 0.02 K/mm3 (0.00-0.23); BASOPHILS PERCENT AUTO 0 % (0-2); EOSINOPHILS ABSOLUTE AUTO 0.01 K/mm3 (0.00-0.68); EOSINOPHILS PERCENT AUTO 0 % (0-6); Hematocrit 40.7 % (37.0-53.0); Hemoglobin 13.7 g/dL (13.5-17.5); IMMATURE GRAN ABSOLUTE AUTO 0.05 K/mm3 (0.00-0.10); IMMATURE GRAN PERCENT AUTO 1 % (0-1); LYMPHOCYTES ABSOLUTE AUTO 0.75 K/mm3 (0.84-5.20); LYMPHOCYTES PERCENT AUTO 7 % (21-46); MONOCYTES ABSOLUTE AUTO 0.62 K/mm3 (0.16-1.47); MONOCYTES PERCENT AUTO 6 % (4-13); Mean Corpuscular HGB Conc 33.7 g/dL (31.5-36.5); Mean Corpuscular Volume 79 fL (80-100); NEUTROPHILS ABSOLUTE AUTO 9.48 K/mm3 (1.96-9.15); NEUTROPHILS PERCENT AUTO 87 % (41-73); NRBC ABSOLUTE 0.00 K/mm3 (0.00-0.02); NRBC Auto 0.0 /100 WBC (0.0-0.2); Platelet Count 368 K/mm3 (150-400); RDW Coefficient Variation 17.0 % (11.7-14.2); RDW Standard Deviation 48.5 fL (35.1-46.3)
--- NOTE | 2024-10-26 06:35 | NUR ---
ASSISTANT DIRECTOR SUMMARY PT A&OX4, VSS, EXCEPT ELEVATED BP. PT HAS BEEN ASLEEP FOR MOST OF THE NIGHT. CHEST RISE AND RESPIRATIONS NOTED. COOPERATIVE WITH MOST ASSESSMENTS AND CARE. PT UP AD MORRIS AND VOICES NEEDS APPROPRIATELY W/ CALL LIGHT. AFFECT ARM HAS IMPROVED. SWELLING HAS DECREASED AND ROM HAS INCREASED. PT DENIES ANY PAIN AND ALSO VOICED FEELING IMPROVEMENTS IN HAND. PT REMAINS ON TELE. A FIB AT 82. PT HAS BEEN RECEPTIVE TO EDUCATION PROVIDED. BED RAILS UP X 2, BED IN LOWEST POSITION, BED WHEELS LOCKED, PERSONAL BELONGINGS AND CALL LIGHT WITHIN REACH FOR SAFETY.
[2024-10-26 06:40] LABS: Anion Gap 9.0 mmol/L (3-11); Blood Urea Nitrogen 20.0 mg/dL (8-24); CO2, Blood 26.0 mmol/L (21-32); Calcium, Blood 9.5 mg/dL (8.5-10.1); Chloride, Blood 105.0 mmol/L (98-108); Creatinine, Blood 0.96 mg/dL (0.60-1.20); Glucose, Blood 109.0 mg/dL (70-99); Potassium, Blood 3.7 mmol/L (3.5-5.5); Sodium, Blood 136.0 mmol/L (136-145)
[2024-10-26 07:46] VITALS: BP 150/114
[2024-10-26] MEDS ORDERED: ATEN25 PO (11:06)
[2024-10-26] MEDS ORDERED: COLCHICINE0.6 MG PO (11:08)
[2024-10-26] MEDS ORDERED: IRBE150 PO (11:08)
[2024-10-26] MEDS ORDERED: PRED20 PO (11:09)
--- NOTE | 2024-10-26 12:13 | NUR ---
PT DISCHARGED TO HOME. DISCHARGE INSTRUCTIONS PROVIDED AND EDUCATED ON AT TIMES OF DISCHARGE. ALL VALUABLES RETURNED AND SENT HOME WITH THE PT. MEDICATIONS FAXED TO [facility].
== END 2024-10-26 13:05 | disposition home or self-care (01) | DRG 554 ==
LOC: ER 12:56 → MEDS 19:02
PROVIDERS: Family Medicine; Nurse Practitioner Acute Care; Physician Assistant; ADMIT Student in an Organized Health Care Education/Training Program
PROC: 0RJ Upper Joints, Inspection (ICD-10-PCS; principal; 2024-10-23)
DX: M10.9 Gout, unspecified (principal); E87.20 Acidosis, unspecified; I48.20 Chronic atrial fibrillation, unspecified; M70.22 Olecranon bursitis, left elbow; I12.9 Hypertensive chronic kidney disease with stage 1 through stage 4 chronic kidney disease, or unspecified chronic kidney disease; N18.31 Chronic kidney disease, stage 3a; F32.A Depression, unspecified; Z85.46 Personal history of malignant neoplasm of prostate; Z79.899 Other long term (current) drug therapy; Z98.41 Cataract extraction status, right eye; Z98.890 Other specified postprocedural states; Z79.82 Long term (current) use of aspirin
CPT/HCPCS: 36415; 73201; 80048; 80053; 80202; 83605; 84550; 85025; 85651; 86140; 87040; 93971; 99284-25; A9270; J0696; J1100; J1650; J2919; J3373; J7050; J7120; Q9967